=== PATIENT | male | born 1975 | race Caucasian/White ===

== ENCOUNTER 2019-08-10 17:22 | Emergency (ER) | payer SELFPAY ==
[~2019-08-10] VITALS: Ht 185.5 cm; Wt 142.9 kg
[~2019-08-10 17:22] MED LIST: ASPI-983 PO; FLUO20CA42 PO; LISI1TAB10 PO; LORA0.5T PO; TIOT4MIS2 IH
[2019-08-10] MEDS ORDERED: OSELTAMIVIR 75 MG (TAMIFLU) CAPSULE PO ONE (17:30)
[2019-08-10 18:06] LABS: BASOPHILS # (AUTO) 0.1 10^3/uL (0.0-0.1); BASOPHILS % (AUTO) 1 % (0-10); EOSINOPHILS # (AUTO) 0.3 10^3/uL (0.0-0.3); EOSINOPHILS % (AUTO) 3 % (0-10); HEMATOCRIT 47 % (40-54); HEMOGLOBIN 15.9 G/DL (13.3-17.7); LYMPHOCYTES % (AUTO) 27 % (12-44); MEAN CORPUSCULAR HEMOGLOBIN 30 PG (25-34); MEAN CORPUSCULAR HGB CONC 34 G/DL (32-36); MEAN CORPUSCULAR VOLUME 88 FL (80-99); MEAN PLATELET VOLUME 10.2 FL (7.4-10.4); MONOCYTES # (AUTO) 1.1 X 10^3 (0.0-1.0); MONOCYTES % (AUTO) 10 % (0-12); NEUTROPHILS # (AUTO) 6.5 X 10^3 (1.8-7.8); NEUTROPHILS % (AUTO) 59 % (42-75); PLATELET COUNT 303 10^3/uL (130-400); RED CELL DISTRIBUTION WIDTH 13.4 % (10.0-14.5)
[2019-08-10] MEDS ORDERED: RT-ALBUTEROL/IPRATROPIUM 3 ML (DUONEB) VIAL INH ONE (18:15)
--- NOTE | 2019-08-10 18:21 | ED Cough/URI ---
General Chief Complaint: Respiratory Problems Stated Complaint: SOB Nursing Triage Note: PT AMBULATE TO TRIAGE WITH C/O SOB, COUGH, CONGESTION X 2 WEEKS. PT STATES DIFFICULTY LYING FLAT AND THAT PUTTING ARMS OVER HEAD HELPS TO BREATHE. Sepsis Screen: No Definite Risk Source: patient Exam Limitations: no limitations History of Present Illness Date Seen by Provider: Aug 10, 2019 Time Seen by Provider: 18:19 Initial Comments To ER with shortness of breath, cough, congestion for 2 weeks. He has difficulty laying flat. States that putting his arms up over his head sometimes helps breathe. This is been ongoing for about 3 weeks, occasionally the cough is productive. He does smoke cigarettes about one pack per day and has done so for about 30 years. He is uncertain as to whether or not he has a diagnosis of COPD. He does not wear oxygen at home. He denies fevers or chills or chest pain. He does report dyspnea on exertion. Timing/Duration: constant Severity/Quality: dry cough, productive cough Prior Episodes/Possible Cause: no prior episodes Modifying Factors: Worse With Activity, Worse With Coughing, Worse With Lying Down; Improves With Rest Associated Symptoms: cough, shortness of breath Allergies and Home Medications Allergies Coded Allergies: Penicillins (Verified Allergy, Unknown, 08/31/15) sulfamethoxazole (Verified Allergy, Unknown, 08/31/15) trimethoprim (Verified Allergy, Unknown, 08/31/15) Home Medications Fluoxetine HCl 20 Mg Capsule, 20 MG PO DAILY, (Reported) Lisinopril/Hydrochlorothiazide 1 Each Tablet, 0.5 TAB PO DAILY, (Reported) Lorazepam 0.5 Mg Tablet, 0.5 MG PO Q12H PRN for ANXIETY, (Reported) Tiotropium [place] 4 Gm Mist.inhal, 4 GM IH DAILY, (Reported) Patient Home Medication List Home Medication List Reviewed: Yes Review of Systems Review of Systems Constitutional: see HPI; No chills, No fever EENTM: see HPI Respiratory: see HPI, cough, dyspnea on exertion, short of breath Cardiovascular: No chest pain, No edema Genitourinary: no symptoms reported Musculoskeletal: no symptoms reported Skin: no symptoms reported Psychiatric/Neurological: No Symptoms Reported Past Rixpckn-Edyjvy-Jzeqdg Hx Patient Social History Alcohol Use: Regular Use Alcohol Beverage of Choice: Whiskey, Vodka Recreational Drug Use: No Smoking Status: Current Everyday Smoker Type Used: Cigars 2nd Hand Smoke Exposure: Yes Recent Foreign Travel: No Contact w/Someone Who Travel: No Recent Infectious Disease Expo: No Recent Hopitalizations: No Physical Abuse: No Sexual Abuse: No Mistreated: No Fear: No Seasonal Allergies Seasonal Allergies: No Past Medical History Surgeries: Yes (FACIAL FROM SKULL FX) Orthopedic, Tonsillectomy Respiratory: Yes COPD Cardiac: Yes Hypertension Neurological: No Genitourinary: No Gastrointestinal: Yes Gall Bladder Disease Musculoskeletal: Yes (SKULL FX, ANKLE PROBLEMS FROM ) Endocrine: No HEENT: No Cancer: No Psychosocial: Yes Anxiety, Depression Integumentary: No Blood Disorders: No Physical Exam Vital Signs - First Documented 08/10/19 08/10/19 17:27 18:35 Temp 36.6 Pulse 83 Resp 17 B/P (MAP) 129/83 (98) Pulse Ox 99 O2 Delivery Room Air Capillary Refill : Less Than 3 Seconds Height: '" Weight: lbs. oz. kg; 41.00 BMI Method: General Appearance: WD/WN, no apparent distress Eyes: Bilateral Eye Normal Inspection, Bilateral Eye PERRL, Bilateral Eye EOMI HEENT: PERRL/EOMI, normal ENT inspection Respiratory: no respiratory distress, no accessory muscle use, other (Questionable crackles left base, no wheezing, diminished throughout.) Cardiovascular: regular rate, rhythm Gastrointestinal: normal bowel sounds, non tender, soft Extremities: normal range of motion, non-tender Neurologic/Psychiatric: alert, normal mood/affect, oriented x 3 Skin: normal color, warm/dry Progress/Results/Core Measures Suspected Sepsis Recent Fever Within 48 Hours: No Infection Criteria Present: None New/Unexplained Altered Menta: No Sepsis Screen: No Definite Risk SIRS Temperature: Pulse: 83 Respiratory Rate: 17 Laboratory Tests 08/10/19 17:54: White Blood Count 11.0 Blood Pressure 129 /83 Mean: 98 Laboratory Tests 08/10/19 17:54: Creatinine 0.73, Platelet Count 303 Results/Orders Lab Results Laboratory Tests Test 08/10/19 17:54 Range/Units White Blood Count 11.0 4.3-11.0 10^3/uL Red Blood Count 5.30 4.35-5.85 10^6/uL Hemoglobin 15.9 13.3-17.7 G/DL Hematocrit 47 40-54 % Mean Corpuscular Volume 88 80-99 FL Mean Corpuscular Hemoglobin 30 25-34 PG Mean Corpuscular Hemoglobin Concent 34 32-36 G/DL Red Cell Distribution Width 13.4 10.0-14.5 % Platelet Count 303 130-400 10^3/uL Mean Platelet Volume 10.2 7.4-10.4 FL Neutrophils (%) (Auto) 59 42-75 % Lymphocytes (%) (Auto) 27 12-44 % Monocytes (%) (Auto) 10 0-12 % Eosinophils (%) (Auto) 3 0-10 % Basophils (%) (Auto) 1 0-10 % Neutrophils # (Auto) 6.5 1.8-7.8 X 10^3 Lymphocytes # (Auto) 3.0 1.0-4.0 X 10^3 Monocytes # (Auto) 1.1 H 0.0-1.0 X 10^3 Eosinophils # (Auto) 0.3 0.0-0.3 10^3/uL Basophils # (Auto) 0.1 0.0-0.1 10^3/uL D-Dimer 0.36 0.00-0.49 UG/ML Sodium Level 140 135-145 MMOL/L Potassium Level 3.1 L 3.6-5.0 MMOL/L Chloride Level 100 98-107 MMOL/L Carbon Dioxide Level 27 21-32 MMOL/L Anion Gap 13 5-14 MMOL/L Blood Urea Nitrogen 15 7-18 MG/DL Creatinine 0.73 0.60-1.30 MG/DL Estimat Glomerular Filtration Rate > 60 BUN/Creatinine Ratio 21 Glucose Level 101 70-105 MG/DL Calcium Level 8.9 8.5-10.1 MG/DL Troponin I < 0.028 <0.028 NG/ML B-Type Natriuretic Peptide 128.9 H <100.0 PG/ML Micro Results Microbiology 08/10/19 Influenza Types A,B Antigen (NIGHAT) - Final, Complete My Orders Orders - CHARLY SZYMANSKI APRN Cbc With Automated Diff (08/10/19 17:40) Basic Metabolic Panel (08/10/19 17:40) BNP (08/10/19 17:40) Chest Pa/Lat (2 View) (08/10/19 17:40) Influenza A And B Antigens (08/10/19 17:40) Troponin I (08/10/19 17:40) Ekg Tracing (08/10/19 17:40) Fibrin Degradation Products (08/10/19 18:12) Albuterol/Ipra Inhalation Soln (Duoneb I (08/10/19 18:15) Svn Small Volume Nebulizer (08/10/19 18:12) Potassium Chloride (Tablet) (K Dur Table (08/10/19 18:30) Medications Given in ED Current Medications Medications Dose Ordered Sig/Bailee Route Start Time Stop Time Status Last Admin Dose Admin Albuterol/ Ipratropium 3 ml ONCE ONCE INH 08/10/19 18:15 08/10/19 18:16 DC 08/10/19 18:34 3 ML Vital Signs/I&O 08/10/19 08/10/19 17:27 18:35 Temp 36.6 Pulse 83 Resp 17 B/P (MAP) 129/83 (98) Pulse Ox 99 O2 Delivery Room Air Room Air Capillary Refill : Less Than 3 Seconds Blood Pressure Mean: 98 Diagnostic Imaging Diagonstic Imaging: Xray Comments NAME: ISI JACOBSEN [facility] REC#: [id number] PT STATUS: REG ER : 1975 PHYSICIAN: CHARLY SZYMANSKI APRN ADMIT DATE: 08/10/19/ER Draft Date of Exam:08/10/19 CHEST PA/LAT (2 VIEW) INDICATION: Shortness of air x2 weeks. TECHNIQUE: Two view chest 6:20 PM CORRELATION STUDY: None FINDINGS: The heart size, mediastinal configuration and pulmonary vasculature are within normal limits. The lungs are clear with no consolidating infiltrate. There is no significant pleural effusion or pneumothorax. Mild asymmetric elevated right diaphragm. Mild multilevel degenerative changes thoracic spine. IMPRESSION: 1. Negative for acute findings of the chest. Dictated on workstation # [id number] Dict: 08/10/194 Trans: 08/10/19 182 DO [id number] Interpreted by: VIVI AGUSTIN DO Electronically signed by: Departure Impression Primary Impression: Dyspnea on exertion Additional Impression: Bronchitis Disposition: 01 HOME, SELF-CARE Condition: Improved Departure-Patient Inst. Decision time for Depature: 18:43 Referrals: INDRA GHOSH MD (PCP/Family) Primary Care Physician Patient Instructions: Shortness of Breath (Dyspnea) (DC), Acute Bronchitis Add. Discharge Instructions: 1. Return to ER for any concerns 2. Steroids as directed. Inhaler every 4 hours as directed. Antibiotic as directed. Follow-up with Dr. Ghosh this week. All discharge instructions reviewed with patient and/or family. Voiced understanding. Scripts Albuterol Sulfate (Albuterol Sulfate) 2.5 Mg/3 Ml Vial.neb 2.5 MG INH Q4H PRN for WHEEZING, #50 EA 1 Refill Prov: CHARLY SZYMANSKI APRN 08/10/19 Cefuroxime Axetil (Cefuroxime) 250 Mg Tablet 250 MG PO BID, #10 TAB Prov: CHARLY SZYMANSKI APRN 08/10/19 Prednisone (Prednisone) 20 Mg Tab 40 MG PO DAILY, #6 TAB 0 Refills Prov: CHARLY SZYMANSKI APRN 08/10/19 Copy Copies To 1: INDRA GHOSH MD, PETER J APRN Aug 10, 2019 18:21
[2019-08-10 18:22] LABS: BUN/CREATININE RATIO 21; CALCIUM 8.9 MG/DL (8.5-10.1); CARBON DIOXIDE 27 MMOL/L (21-32); CHLORIDE 100 MMOL/L (98-107); CREATININE SERUM 0.73 MG/DL (0.60-1.30); GFR ESTIMATED > 60; GLUCOSE 101 MG/DL (70-105); POTASSIUM 3.1 MMOL/L (3.6-5.0); SODIUM 140 MMOL/L (135-145)
--- NOTE | 2019-08-10 18:24 | Diagnostic Imaging Report ---
INDICATION: Shortness of air x2 weeks. TECHNIQUE: Two view chest 6:20 PM CORRELATION STUDY: None FINDINGS: The heart size, mediastinal configuration and pulmonary vasculature are within normal limits. The lungs are clear with no consolidating infiltrate. There is no significant pleural effusion or pneumothorax. Mild asymmetric elevated right diaphragm. Mild multilevel degenerative changes thoracic spine. IMPRESSION: 1. Negative for acute findings of the chest. Dictated by: Dictated on workstation # [id number]
[2019-08-10] MEDS ORDERED: KCL 20 MEQ TAB (K-DUR) PO ONE (18:30)
[2019-08-10] MEDS ORDERED: ALBU2.5V4 INH (18:45)
[2019-08-10] MEDS ORDERED: CEFU250T80 PO (18:45)
[2019-08-10] MEDS ORDERED: PRD20T PO (18:45)
[2019-08-10] MEDS ORDERED: RX-ALBUTEROL NEB 2.5 MG/3 ML PACK #5 IH STA (18:46)
[2019-08-10] MEDS ORDERED: methylPREDNISolone 125 MG (Solu-MEDROL) VIAL IVP ONE (19:00)
[2019-08-10] MEDS ORDERED: cefTRIAXone FOR IV USE 1,000 MG in WATER (STERILE) FOR INJECTION 10 ML IV ONE (19:00)
[2019-08-10 19:12] VITALS: BP 109/75
== END 2019-08-10 19:22 | disposition home or self-care (01) ==
LOC: EDUNIT# 17:22 → ER 17:23
DX: J40 Bronchitis, not specified as acute or chronic (principal); I10 Essential (primary) hypertension; J44.9 Chronic obstructive pulmonary disease, unspecified; F41.9 Anxiety disorder, unspecified; F32.9 Major depressive disorder, single episode, unspecified; F17.290 Nicotine dependence, other tobacco product, uncomplicated; Z90.89 Acquired absence of other organs; Z88.0 Allergy status to penicillin; Z88.2 Allergy status to sulfonamides; Z88.1 Allergy status to other antibiotic agents
CPT/HCPCS: 36415; 71046; 80048; 83880; 84484; 85025; 85379; 87804; 93005; 94640; 96374; 96375